=== PATIENT | male | born 1970 | race American Indian/Alaskan Native ===

== ENCOUNTER 2020-11-09 06:19 | Day surgery (SDC) | payer BC ==
[2020-11-09] MEDS ORDERED: ASPIRIN EC 325 MG TAB PO NR (06:49)
[2020-11-09] MEDS ORDERED: SODIUM CHLORIDE 0.9% 500 ML 500 ML IV SCH (07:00)
[2020-11-09 07:07] LABS: Basophils % (Auto) 0.6 % (0.0-1.8); Eosinophils # (Auto) 0.1 K/mm3 (0.0-0.4); Eosinophils % (Auto) 1.8 % (0.0-4.3); Hematocrit 40.6 % (35.5-45.6); Hemoglobin 13.9 gm/dl (11.8-15.2); Lymphocytes # (Auto) 2.4 K/mm3 (1.2-5.4); Lymphocytes % (Auto) 34.7 % (13.4-35.0); Mean Corpuscular HGB Conc 34 % (32-34); Mean Corpuscular Volume 86 fl (84-94); Monocytes # (Auto) 0.7 K/mm3 (0.0-0.8); Platelet Count 208 K/mm3 (140-440); Red Blood Count 4.73 M/mm3 (3.65-5.03); Red Cell Distribution Width 14.8 % (13.2-15.2)
[2020-11-09 07:19] LABS: INR 1.03 (0.87-1.13)
[2020-11-09 07:49] LABS: BUN/Creatinine Ratio 21; Blood Urea Nitrogen 25 mg/dL (9-20); Hemolysis Index 4
[2020-11-09] MEDS ORDERED: HEPARIN/NS 5000 UNIT/500ML 1,000 ML IR ONE (08:12)
[2020-11-09] MEDS ORDERED: MIDAZOLAM 2 MG/2 ML INJ ONE (08:12)
[2020-11-09] MEDS ORDERED: fentaNYL 100 MCG/2 ML INJ ONE (08:12)
[2020-11-09] MEDS ORDERED: LIDOCAINE (2%) 20 MG/1 ML VIAL 20 ML MDV INFILTRATI ONE (08:13)
[2020-11-09] MEDS: VERAPAMIL 5 MG/2 ML INJ ONE ×2 (08:41→08:43)
[2020-11-09] MEDS: NITROGLYCERIN SYRINGE 3 ML ONE ×2 (08:41→08:43)
[2020-11-09] MEDS: HEPARIN 10,000 UNITS/10 ML VIAL ONE ×2 (08:42→08:43)
--- NOTE | 2020-11-09 09:24 | Cardiac Catherization Report ---
HEART CATHETERIZATION REFERRING PHYSICIAN: Dr. Llanes. INDICATION FOR PROCEDURE: The patient is a pleasant 50-year-old gentleman with history of hypertension, diabetes, hyperlipidemia, presents here and found to have an abnormal stress test. Also, has a family history of premature heart disease. Referred for left heart catheterization. Risks, benefits, potential alternatives explained at length prior to obtaining informed consent. PROCEDURE IN DETAIL: The patient was brought to the [employer] laborer in a postoperative state, prepped and draped in sterile fashion. Gurjit's test in right hand was normal. A 2 mL of 2% lidocaine used to anesthetize the right wrist. A standard 6-Italian hydrophilic sheath used to cannulate the right radial artery via modified Seldinger technique. All exchanges were performed to exchange a J-tip guidewire. JL3.5 catheter was used to engage the left main. No dampening or ventricularization. Cineangiography performed in all projections. JR4 catheter used to cross the aortic valve under fluoroscopic guidance. Left ventriculography was performed in 30 NARAY[place]N and 30 PERSIAN projections via hand injections, catheter flushed. Manual pullback performed with continuous pressure monitoring. Catheter used to engage the right coronary. No dampening or ventricularization. Cineangiography performed in all projections. DATA: Aortic pressure is 100/60, LV pressure is 100, LVP of 8. Left ventriculography reveals normal systolic performance with estimated ejection fraction of 55-60%. No evidence of aortic stenosis. CORONARY ANATOMY: This is a right dominant system. Right coronary is a moderate sized vessel, courses AV groove, distally bifurcates into posterior descending and posterolateral branch, 25% stenosis proximally. No obstructive lesions noted, REJI 3 flow. Left main without significant disease, bifurcates left anterior descending and left circumflex. Left main is without significant disease. Left circumflex, moderate sized vessel, courses AV groove. No significant disease. LAD is a moderate sized vessel, courses anterior intergroove, wraps around the apex, no significant disease in the LAD or diagonal system. CONCLUSIONS: 1. Mild nonobstructive coronary artery disease identified in this right dominant system. 2. 25% proximal right coronary artery stenosis. 3. Normal systolic performance with estimated ejection fraction of 55-60%. 4. No evidence of aortic stenosis. 5. Normal LVEDP. Recommend aggressive risk factor modification, diet and lifestyle modification. Stable cardiac status. Standard radial care. Results of procedure explained to the patient and family at length. All questions and concerns were addressed. Follow up with Dr. Llanes in the office. JOB# [id number] TJ/NTS
--- NOTE | 2020-11-09 09:54 | Short Stay Summary ---
Short Stay Documentation Date of service: 11/09/20 - History H&P: obtained from office - Allergies and Medications Current Medications: Allergies No Known Allergies Allergy (Verified 11/09/20 06:48) Home Medications Medication Instructions Recorded Confirmed Last Taken Type Amlodipine Bes/Olmesartan Med 1 each PO DAILY 11/09/20 11/09/20 11/08/20 History [Amlodipine-Olmesartan 5-20 mg] AtorvaSTATin [Lipitor] 20 mg PO QHS 11/09/20 11/09/20 11/08/20 History Chlorthalidone [Thalitone] 25 mg PO QDAY 11/09/20 11/09/20 11/08/20 History Sitagliptin Phos/Metformin HCl 1 tab PO BID 11/09/20 11/09/20 11/08/20 History [Janumet 50-1,000 mg Tablet] glipiZIDE [Glucotrol] 5 mg PO QDAY 11/09/20 11/09/20 11/08/20 History Active Medications Sodium Chloride (Nacl 0.9% 500 Ml) 500 mls @ 50 mls/hr IV DIRECT DANIELA Stop: 11/09/20 16:59 Last Admin: 11/09/20 07:59 Dose: 50 mls/hr Documented by: - Brief post op/procedure progress note Date of procedure: 11/09/20 Pre-op diagnosis: abnormal stress test Post-op diagnosis: other (mild nonobstructive CAD) Procedure: [facility] - see dictated cath report Anesthesia: local Estimated blood loss: none Condition: stable - Disposition Condition at discharge: Good Disposition: [id number]-01 TO HOME OR SELFCARE - Discharge Diagnoses (1) Nonobstructive atherosclerosis of coronary artery Status: Chronic (2) HTN (hypertension) Status: Chronic (3) Diabetes Status: Chronic (4) Hyperlipidemia Status: Chronic Short Stay Discharge Plan Activity: advance as tolerated Diet: low fat, low cholesterol, low salt Wound: open to air, keep clean and dry, per your surgeon's advice Follow up with: RAUL WHITFIELD MD [Primary Care Provider] - 7 Days
[2020-11-09 19:14] VITALS: BP 109/66
== END 2020-11-09 12:15 | disposition home or self-care (01) ==
LOC: CATHLABREC 06:19
PROVIDERS: ATTEND Internal Medicine
DX: R94.39 Abnormal result of other cardiovascular function study (principal); I10 Essential (primary) hypertension; E11.9 Type 2 diabetes mellitus without complications; E78.5 Hyperlipidemia, unspecified; I25.10 Atherosclerotic heart disease of native coronary artery without angina pectoris; I42.9 Cardiomyopathy, unspecified; G47.30 Sleep apnea, unspecified; Z79.899 Other long term (current) drug therapy; Z98.890 Other specified postprocedural states; Z98.41 Cataract extraction status, right eye; Z82.49 Family history of ischemic heart disease and other diseases of the circulatory system
CPT/HCPCS: 36415; 80048; 85025; 85610; 85730; 93005; 93458; 99156; 99157; C1887; C1894; J1644; J2250; J3010; J7040; Q9967